=== PATIENT | female | born 1950 | race Caucasian/White ===

== ENCOUNTER 2017-10-16 06:00 | Inpatient (IN) | payer BC, MEDICARE ==
[~2017-10-16] VITALS: Ht 157.5 cm; Wt 72.6 kg
[~2017-10-16 06:00] MED LIST: AMLO10TA2 PO; CALC600T12 PO; CHOL20004 PO; HUMALOG INSULIN SQ; LANTUS INSULIN SQ; LEVO100T10 PO; NIAC1000 PO; PENT400T12 PO; SIMV40TA5 PO
--- NOTE | 2017-10-16 06:35 | NUR ---
Dr. North at bedside for MSE.
[2017-10-16] MEDS ORDERED: CHOL20004 PO (06:44)
[2017-10-16] MEDS ORDERED: AMLO10TA2 PO (06:44)
[2017-10-16] MEDS ORDERED: CALC600T12 PO (06:44)
[2017-10-16] MEDS ORDERED: ACETAMINOPHEN ES 500 MG TABLET PO ONE (06:45)
[2017-10-16] MEDS ORDERED: LANTUS INSULIN SUBCUT (06:46)
[2017-10-16] MEDS ORDERED: ACETAMINOPHEN ES 500 MG TABLET ONE (06:47)
--- NOTE | 2017-10-16 07:23 | NUR ---
REPORT GIVEN TO DANIA GREEN.
[2017-10-16] MEDS ORDERED: MORPHINE SULFATE 2 MG/1 ML DISP.SYRIN IV ONE (07:30)
[2017-10-16] MEDS ORDERED: ONDANSETRON 4 MG/2 ML VIAL IV ONE (07:30)
[2017-10-16] MEDS ORDERED: ONDANSETRON 4 MG/2 ML VIAL ONE (07:37)
[2017-10-16] MEDS ORDERED: MORPHINE SULFATE 2 MG/1 ML DISP.SYRIN ONE (07:38)
[2017-10-16] MEDS ORDERED: PROPOFOL 200 MG/20 ML BOTTLE ONE (07:40)
--- NOTE | 2017-10-16 07:40 | NUR ---
Pt signed consent for closed reduction of Lt ankle by JASON HOOD.
--- NOTE | 2017-10-16 07:45 | NUR ---
Recieved call from DR yadira damian/ [facility](Pt's insurance), notify that no bed available at [facility], and Pt will be admitted to our hospital. Dr North made aware.
--- NOTE | 2017-10-16 07:50 | NUR ---
Time out done by Dr hitchcock and myself, Rt at the bedside.
--- NOTE | 2017-10-16 08:02 | NUR ---
Pt recieved 70 mg of Diprovan, per Md order. 130 mg of Diprovan wasted.
--- NOTE | 2017-10-16 08:03 | NUR ---
Pt is awake and verbally responsive, although drowsy. Able to move all 4 ext. No c/o pain at this time.
[2017-10-16 08:14] LABS: BASOPHILS % (AUTO) 0.3 % (0.0-2.0); EOSINOPHILS # (AUTO) 0.1 K/uL (0.0-0.7); HEMATOCRIT 36.5 % (31.2-41.9); HEMOGLOBIN 11.9 g/dL (10.9-14.3); LYMPHOCYTES % (AUTO) 7.2 % (20.5-51.5); MEAN CORPUSCULAR HEMOGLOBIN 28.4 uug (24.7-32.8); MEAN CORPUSCULAR HGB CONC 33 g/dL (32.3-35.6); MEAN CORPUSCULAR VOLUME 86.8 fL (75.5-95.3); MONOCYTES # (AUTO) 0.4 K/uL (2.0-10.0); MONOCYTES % (AUTO) 2.8 % (0.0-11.0); NEUTROPHILS # (AUTO) 12.3 K/uL (1.8-8.9); NEUTROPHILS % (AUTO) 88.7 % (38.5-71.5); PLATELET COUNT (AUTO) 502 K/uL (179-408); WHITE BLOOD COUNT (AUTO) 13.9 K/uL (3.8-11.8)
--- NOTE | 2017-10-16 08:15 | NUR ---
Pt is awake and able to move all ext. Pt is made aware of admin to hospital and agreed.
[2017-10-16 08:21] LABS: CREATININE 1.2 mg/dL (0.6-1.3); POTASSIUM 4.6 mmol/L (3.5-5.1)
[2017-10-16 08:27] LABS: BILIRUBIN,DIRECT 0.1 mg/dL (0.0-0.2); BILIRUBIN,TOTAL 0.4 mg/dL (0.2-1.0); TOTAL PROTEIN, SERUM 7.1 g/dL (6.4-8.2)
--- NOTE | 2017-10-16 08:41 | NUR ---
Pt is resting in bed w/ both eyes closed, arousable to verbal response. No c/o pain, CMS WNL on all 4 ext.
[2017-10-16] MEDS ORDERED: IV NORMAL SALINE 1000 ML BAG IV ONE (09:00)
[2017-10-16] MEDS ORDERED: PROPOFOL 200 MG/20 ML BOTTLE IV ONE (09:00)
--- NOTE | 2017-10-16 09:00 | NUR ---
Patient is resting comfortably in bed with eyes closed, NAD noted.
--- NOTE | 2017-10-16 09:30 | NUR ---
paged Orth librarian special collections Dr Argueta x4, awaiting call back.
--- NOTE | 2017-10-16 09:40 | NUR ---
Dr sinha called and spoke to JASON HOOD.
--- NOTE | 2017-10-16 10:18 | NUR ---
patient transferred from ER onto medical-surgical floor in stable condition, no s/s of distress. vital signs stable. left ankle wrapped with plaster cast. patient only complains of pain with movement of left-lower extremity and is tolerable without pain medication. accu-check shows 132. bed in locked/low position, side rails up x2, bed alarm on , call light within reach.
[2017-10-16 10:20] VITALS: BP 126/44
[2017-10-16] MEDS ORDERED: IV D5/ 0.9% NACL 1,000 ML IV PRN (10:45)
--- NOTE | 2017-10-16 12:00 | NUR ---
Dr. Argueta is aware of patient's condition and will be the patient's surgeon if patient agrees and signs consent to have surgery done. Dr. Argueta has not seen patient yet. no orders placed for surgery yet.
[2017-10-16] MEDS ORDERED: INSULIN REGULAR, HUMAN 300 UNIT/3 ML VIAL SQ PRN (12:30)
[2017-10-16] MEDS ORDERED: DEXTROSE 50% 50 ML DISP.SYRIN IV PRN (12:30)
[2017-10-16] MEDS: BLOOD SUGAR DIAGNOSTIC 1 EACH STRIP VI SCH ×3 (12:36→20:29)
[2017-10-16 15:30] VITALS: BP 120/48
[2017-10-16 15:30] LABS: *BILIRUBIN,URIN NEGATIVE (NEGATIVE); *BLOOD, URINE NEGATIVE (NEGATIVE); *CLARITY,URINE CLEAR (CLEAR); *COLOR,URINE YELLOW (YELLOW); *KETONES,URINE 1+ (NEGATIVE); *PROTEIN,URINE NEGATIVE (NEGATIVE); *UROBILINOGEN,URINE 0.2 E.U./dl (NORMAL); LEUKOCYTE ESTERASE ,URINE NEGATIVE (NEGATIVE); NITRITE, URINE NEGATIVE (NEGATIVE); UGLUCOSE NEGATIVE (NEGATIVE)
[2017-10-16 15:41] LABS: BACTERIA,URINE NONE SEEN /HPF (NONE SEEN); RBC,URINE 0-3 /HPF (0-3); SQUAMOUS EPITHELIAL CELL,UR FEW /HPF (NONE SEEN); WBC,URINE 0-3 /HPF (0-3)
[2017-10-16] MEDS: ONDANSETRON 4 MG/2 ML VIAL IV PRN (17:44)
[2017-10-16] MEDS: ACETAMINOPHEN 325 MG TABLET PO PRN (17:54)
[2017-10-16 19:00] VITALS: BP 132/52
--- NOTE | 2017-10-16 19:15 | NUR ---
RECEIVED PT AWAKE, ALERT, ORIENTEDX4. PT SHOWS NO SIGNS OF DISTRESS. PT IV INTACT AND PATENT. CALL LIGHT WITHIN REACH, BED ALARM ON AND IN LOW POSITION, SIDE RAILS UPX2. NO ORDER FOR THE PROCEDURE DIAMOND EXCEPT NPO MIDNIGHT. WILL CONTINUE TO MONITOR.
--- NOTE | 2017-10-16 19:25 | NUR ---
RECEIVED PT AWAKE, ALERT, AND ORIENTEDX4. PT SHOWS NO SIGNS OF DISTRESS. IV INTACT AND PATENT.CALL LIGHT WITHIN REACH, BED ALARM ON AND IN LOW POSITION, SIDE RAILS UPX2. WILL CONTINUE TO MONITOR.
--- NOTE | 2017-10-16 20:42 | NUR ---
DR LARRY ORDERED 15 UNITS OF LANTUS BASED ON THE RESULT OF BLOOD SUGAR OF PT OF 130 . PT SAID HER BLOOD SUGAR DRASTICALLY GOES DOWN AT MIDNIGHT. CHARGE NURSE AWARE. WILL CONTINUE TO MONITOR THE PT.
[2017-10-16] MEDS: INSULIN GLARGINE,HUM 300 UNITS/3 ML CARTRIDGE SQ SCH (21:00)
[2017-10-16] MEDS ORDERED: INSULIN GLARGINE,HUM 300 UNITS/3 ML CARTRIDGE SQ ONE (21:00)
[2017-10-17] MEDS ORDERED: IV D5/ 0.9% NACL 1,000 ML IV PRN
--- NOTE | 2017-10-17 03:40 | NUR ---
JOSE ELIAS CHINCHILLA ORDERED THAT THE STATUS OF PT IS DNR BASED ON THE ADVANCE DIRECTIVE THAT WAS FAX TO US ON 10/16/17. 2 RN SIGNED THE STATUS.
[2017-10-17 04:00] VITALS: BP 149/55
[2017-10-17 06:38] LABS: BASOPHILS # (AUTO) 0.1 K/uL (0.0-8.0); BASOPHILS % (AUTO) 0.9 % (0.0-2.0); EOSINOPHILS # (AUTO) 0.4 K/uL (0.0-0.7); EOSINOPHILS % (AUTO) 5.6 % (0.0-7.0); HEMATOCRIT 35.1 % (31.2-41.9); HEMOGLOBIN 11.6 g/dL (10.9-14.3); LYMPHOCYTES # (AUTO) 1.6 K/uL (20.0-40.0); LYMPHOCYTES % (AUTO) 21.6 % (20.5-51.5); MEAN CORPUSCULAR HEMOGLOBIN 28.9 uug (24.7-32.8); MEAN CORPUSCULAR HGB CONC 33 g/dL (32.3-35.6); MEAN CORPUSCULAR VOLUME 87.8 fL (75.5-95.3); MONOCYTES # (AUTO) 0.5 K/uL (2.0-10.0); MONOCYTES % (AUTO) 6.1 % (0.0-11.0); NEUTROPHILS % (AUTO) 65.8 % (38.5-71.5); PLATELET COUNT (AUTO) 475 K/uL (179-408); WHITE BLOOD COUNT (AUTO) 7.5 K/uL (3.8-11.8)
[2017-10-17] MEDS: BLOOD SUGAR DIAGNOSTIC 1 EACH STRIP VI SCH ×6 (06:38→22:05)
[2017-10-17] MEDS: LEVOTHYROXINE SODIUM 100 MCG TABLET PO SCH ×2 (06:39→08:49)
--- NOTE | 2017-10-17 06:44 | NUR ---
PT SLEPT THROUGHOUT THE SHIFT. PT SHOWS NO SIGNS OF DISTRESS. IV INTACT AND PATENT. SYNTHROID NOT ADMINISTERED BECAUSE OF NPO STATUS.PRESCRIBED MEDICATION GIVEN AND PT TOLERATED IT WELL. NO COMPLAINT OF ABDOMINAL PAIN. SAFETY AND COMFORT PROVIDED. WILL ENDORSE TO DAYSHIFT NURSE.
[2017-10-17 06:46] LABS: BILIRUBIN,TOTAL 0.5 mg/dL (0.2-1.0); CREATININE 1.2 mg/dL (0.6-1.3); MAGNESIUM 1.8 mg/dL (1.8-2.4); PHOSPHOROUS 2.9 mg/dL (2.5-4.9); POTASSIUM 4.2 mmol/L (3.5-5.1); TOTAL PROTEIN, SERUM 6.6 g/dL (6.4-8.2)
[2017-10-17 06:53] LABS: THYROID STIMULATING HORMONE 2.067 mIU/mL (0.358-3.740)
--- NOTE | 2017-10-17 07:43 | NUR ---
patient resting comfortably in bed. awaiting Dr. Argueta to speak with patient regarding surgery. POLST signed by patient. consent for surgery still needs to be signed when Dr. Argueta places order. no s/s of distress at this time.
--- NOTE | 2017-10-17 08:30 | NUR ---
blood sugar re-checked: 336 8 units insulin administered per mild sliding scale.
[2017-10-17] MEDS: MORPHINE SULFATE 2 MG/1 ML DISP.SYRIN IV PRN ×3 (08:32→22:00)
[2017-10-17] MEDS: CALCIUM CARBONATE 600 MG TABLET PO SCH ×2 (08:33→17:27)
[2017-10-17] MEDS: CHOLECALCIFEROL 1,000 UNIT TABLET PO SCH (08:33)
[2017-10-17] MEDS: AMLODIPINE 10 MG TABLET PO SCH (08:33)
[2017-10-17] MEDS: PANTOPRAZOLE SODIUM 40 MG VIAL IV SCH (09:00)
[2017-10-17] MEDS ORDERED: Medication Not On Formulary EA (Cholecalciferol (Vitamin D3) (Vitamin D CAPSULE) 2,000 U PO SCH (09:00)
[2017-10-17] MEDS ORDERED: OMEP40CA37 PO (10:37)
[2017-10-17] MEDS ORDERED: CLONIDINE HCL 0.1 MG TABLET PO PRN (10:45)
[2017-10-17] MEDS ORDERED: DEXTROSE 50% 50 ML DISP.SYRIN IV PRN (11:00)
[2017-10-17 12:09] VITALS: BP 117/41
[2017-10-17] MEDS: INSULIN REGULAR, HUMAN 300 UNIT/3 ML VIAL SQ PRN (12:17)
--- NOTE | 2017-10-17 15:25 | NUR ---
DR. VANG SPEAKING WITH PATIENT AT THIS TIME REGARDING SURGERY. DR. VANG PLACED ORDER TO OBTAIN PROCEDURE CONSENT FOR - OPEN REDUCTION INTERNAL FIXATION LEFT ANKLE FRACTURE. WILL FOLLOW-UP.
--- NOTE | 2017-10-17 15:47 | NUR ---
RN requested RD to see pt about Glucerna ONS. Pt reports she does not like Glucerna ONS chocolate or vanilla. Pt reports she has only been able to eat jello. Pt requested to have Ensure Clear. Patient's blood glucose levels elevated.
--- NOTE | 2017-10-17 15:51 | NUR ---
RN requested RD to see patient. Patient reports she does not like Glucerna ONS chocolate or vanilla flavor. Patient reports she has only been able to eat jello. Patient requested to have Ensure Clear. RD advised patient that Ensure Clear has excessive sugar. Patient aware but unable to eat other foods. Labs: 10/17 A1C 7.2H, Glu 251H. RD to follow up. Addendum: 10/17/17 at [address] Amended: Links added.
[2017-10-17 16:16] VITALS: BP 135/52
[2017-10-17] MEDS: ONDANSETRON 4 MG/2 ML VIAL IV PRN ×2 (17:27→23:39)
[2017-10-17] MEDS ORDERED: LISI-603 PO (19:09)
--- NOTE | 2017-10-17 19:20 | NUR ---
RECEIVED PT AWAKE, ALERT, AND ORIENTEDX4. PT SHOWS NO SIGNS OF DISTRESS. IV INTACT AND PATENT. CALL LIGHT WITHIN REACH, BED ALARM ON AND IN LOW POSITION, SIDE RAILS UPX2. WILL CONTINUE TO MONITOR.
[2017-10-17] MEDS: ACETAMINOPHEN 325 MG TABLET PO PRN (19:57)
[2017-10-17 20:37] VITALS: BP 137/63
[2017-10-17] MEDS: INSULIN GLARGINE,HUM 300 UNITS/3 ML CARTRIDGE SQ SCH (22:05)
[2017-10-17] MEDS: INSULIN REGULAR, HUMAN 300 UNITS/3 ML VIAL SQ PRN (22:06)
--- NOTE | 2017-10-17 22:30 | NUR ---
NOTIFY DR. LARRY REGARDING THE BLOOD SUGAR RESULT.AWAITING FOR FURTHER ORDERS. PT HAD 552 AT 2100H THEN CALLED LAB FOR FOR STAT GLUCOSE AND THEY CALLED BACK TO SAY THAT ITS 517. GAVE INSULIN PER PROTOCOL OF 10 UNITS AND LANTUS OF 23 UNITS. PT STABLE AND NO ACUTE DISTRESS. WILL CONTINUE TO MONITOR.
--- NOTE | 2017-10-17 23:20 | NUR ---
DOCTOR LARON ORDERED TO GIVE EXTRA 10 UNITS OF INSULIN AND CHANGED THE IV FLUID. PT STABLE. WILL CONTINUE TO MONITOR.
[2017-10-17] MEDS ORDERED: IV 1/2NS 1000 ML 1,000 ML IV PRN (23:30)
[2017-10-17] MEDS ORDERED: INSULIN REGULAR, HUMAN 300 UNIT/3 ML VIAL SQ ONE (23:30)
[2017-10-18] MEDS ORDERED: IV D5/ 0.9% NACL 1,000 ML IV PRN
[2017-10-18] MEDS: BLOOD SUGAR DIAGNOSTIC 1 EACH STRIP VI SCH ×5 (06:47→17:15)
[2017-10-18 07:00] LABS: BASOPHILS # (AUTO) 0.1 K/uL (0.0-8.0); BASOPHILS % (AUTO) 1.1 % (0.0-2.0); EOSINOPHILS # (AUTO) 0.6 K/uL (0.0-0.7); EOSINOPHILS % (AUTO) 6.6 % (0.0-7.0); HEMATOCRIT 35.1 % (31.2-41.9); HEMOGLOBIN 11.6 g/dL (10.9-14.3); LYMPHOCYTES # (AUTO) 2.1 K/uL (20.0-40.0); LYMPHOCYTES % (AUTO) 24.7 % (20.5-51.5); MEAN CORPUSCULAR HEMOGLOBIN 28.8 uug (24.7-32.8); MEAN CORPUSCULAR HGB CONC 33 g/dL (32.3-35.6); MEAN CORPUSCULAR VOLUME 87.4 fL (75.5-95.3); MONOCYTES # (AUTO) 0.5 K/uL (2.0-10.0); MONOCYTES % (AUTO) 6.5 % (0.0-11.0); NEUTROPHILS # (AUTO) 5.2 K/uL (1.8-8.9); NEUTROPHILS % (AUTO) 61.1 % (38.5-71.5); PLATELET COUNT (AUTO) 476 K/uL (179-408); RED BLOOD CELL COUNT(AUTO) 4.02 MIL/uL (3.63-4.92); WHITE BLOOD COUNT (AUTO) 8.5 K/uL (3.8-11.8)
--- NOTE | 2017-10-18 07:00 | NUR ---
PT STABLE AND NO ACUTE DISTRESS. IV INTACT AND PATENT. PREOP CHECKLIST DONE. PT GOT 44 CRITICAL LAB VALUE FOR GLUCOSE , GAVE DEXTROSE PER PROTOCOL. CHARGE NURSE AWARE THEN AFTER 30 MINUTES RECHECK THE BLOOD SUGAR AND GOT RESULT OF 221. THE PT STABLE AND NO SIGNS OF DIZZINESS AND COMPLAIN OF PAIN. CHARGE NURSE AWARE . ENDORSE TO DAYSHIFT NURSE.
[2017-10-18 07:08] LABS: BILIRUBIN,TOTAL 0.5 mg/dL (0.2-1.0); CREATININE 1.2 mg/dL (0.6-1.3); MAGNESIUM 1.7 mg/dL (1.8-2.4); PHOSPHOROUS 3.8 mg/dL (2.5-4.9); TOTAL PROTEIN, SERUM 6.9 g/dL (6.4-8.2)
[2017-10-18] MEDS: PANTOPRAZOLE SODIUM 40 MG VIAL IV SCH (07:51)
[2017-10-18] MEDS ORDERED: KETOROLAC TROMETHAMINE 30 MG INJ IM ONE (07:58)
[2017-10-18] MEDS ORDERED: LIDOCAINE HCL 1% 20 ML VIAL MC ONE (07:58)
[2017-10-18] MEDS ORDERED: PROPOFOL 200 MG/20 ML BOTTLE IV ONE (07:58)
[2017-10-18] MEDS ORDERED: IV NORMAL SALINE 1000 ML BAG IV ONE (07:58)
[2017-10-18] MEDS ORDERED: CEFAZOLIN 1 G VIAL MC ONE (07:58)
[2017-10-18] MEDS ORDERED: ONDANSETRON 4 MG/2 ML VIAL IV ONE (07:58)
[2017-10-18] MEDS ORDERED: DEXAMETHASONE SOD PHOSPHATE 4 MG INJ IV ONE (07:58)
--- NOTE | 2017-10-18 08:00 | NUR ---
AWAKE ALERT COOPERATE WELL NO SOB OR PAIN LT LEG /ANKLE HAVING SPLINT INPLACE NEUROVASCULAR CHECK WNL NPO FOR SURGERY THIS AM CONTINUE IVF RESTING WITH CALL FLORES IN REACH
[2017-10-18] MEDS ORDERED: SEVOFLURANE 250 ML BOTTLE IH ONE (08:02)
[2017-10-18] MEDS ORDERED: FENTANYL CITRATE 100 MCG/2 ML AMPUL ONE ×2 (08:29→10:32)
--- NOTE | 2017-10-18 08:30 | NUR ---
TO SURGERY VIA BED CONDITION STABLE
[2017-10-18] MEDS ORDERED: POLYMYXIN B SULFATE 500,000 UNITS, BACITRACIN 50,000 UNITS, NORMAL SALINE 20 ML MC ONE ×3 (08:45)
[2017-10-18] MEDS: AMLODIPINE 10 MG TABLET PO SCH ×2 (09:00→14:00)
[2017-10-18] MEDS: CALCIUM CARBONATE 600 MG TABLET PO SCH ×3 (09:00→17:27)
[2017-10-18] MEDS: CHOLECALCIFEROL 1,000 UNIT TABLET PO SCH ×2 (09:00→14:00)
[2017-10-18] MEDS ORDERED: BUPIVACAINE 0.25% 30 ML VIAL ONE (09:16)
[2017-10-18] MEDS ORDERED: CEFAZOLIN 50 ML IV ONE (10:19)
[2017-10-18] MEDS ORDERED: diphenhydrAMINE 25 MG CAP PO PRN (10:30)
[2017-10-18] MEDS ORDERED: ONDANSETRON 4 MG/2 ML VIAL IV PRN (10:30)
[2017-10-18] MEDS ORDERED: MORPHINE SULFATE 4 MG/1 ML DISP.SYRIN IV PRN (10:30)
[2017-10-18] MEDS ORDERED: KETOROLAC TROMETHAMINE 30 MG INJ ONE (10:32)
[2017-10-18 11:00] VITALS: BP 150/62
--- NOTE | 2017-10-18 11:00 | NUR ---
BACK TO ROOM STILL DROWSY VS TAKEN STABLE NO SOB OR PAIN CONTINUE O2 AT 2L O2 SAT WNL CONTINUE IVF ON LT WRIST CAST ON LEFT LEG/ANKLE DRY INTACT KEEP ICE PK INPLACE NEUROVASCULAR CHECK WNL CLOSED OBSERVATION
[2017-10-18 11:50] VITALS: BP 146/56
[2017-10-18] MEDS: MAGNESIUM SULFATE/D5W 100 ML IV SCH ×2 (12:09→13:38)
[2017-10-18] MEDS: INSULIN REGULAR, HUMAN 300 UNIT/3 ML VIAL SQ PRN ×2 (12:10→17:56)
[2017-10-18] MEDS ORDERED: KETOROLAC TROMETHAMINE 30 MG INJ IVP SCH (14:00)
[2017-10-18] MEDS ORDERED: KETOROLAC TROMETHAMINE 15 MG INJ IVP SCH (15:43)
[2017-10-18 16:05] VITALS: BP 143/61
--- NOTE | 2017-10-18 16:31 | NUR ---
ACCU CHECK BS WAS HIGH 524 ,PATIENT STATE DRINK ENSURE AT 1530 PM ,THEN WILL REPEAT LATER
--- NOTE | 2017-10-18 17:20 | NUR ---
REPEAT ACCU CHECK AGAIN IT WAS 518 THEN REPEAT AT 1722PM IT WAS 465 AND LAB WAS CALL TO DRAW BLOOD PER PROTOCAL
[2017-10-18] MEDS: POTASSIUM CHLORIDE 20 MEQ in IV 1/2NS 1000 ML 1,000 ML IV PRN (17:26)
[2017-10-18] MEDS: KETOROLAC TROMETHAMINE 15 MG INJ IVP SCH (17:59)
[2017-10-18] MEDS: CEFAZOLIN 1 G in PREMIXED 1 EACH IV SCH (17:59)
--- NOTE | 2017-10-18 18:00 | NUR ---
LAB CALL BLOOD GLUCOSE WAS 488 AND Dana SANTANA WAS INFORM STATE WILL TAKE A LOOK .
--- NOTE | 2017-10-18 18:15 | NUR ---
MOST OF THE TIME RESTING WELL LEFT FOOT CAST INPLACE WITH ICE PK NEURO-VASCULAR CIRCULATION WNL ,PAIN UNDER CONTROL SAFETY MEASURE PROVIDED CALL LIGHT IN REACH
--- NOTE | 2017-10-18 19:20 | NUR ---
RECEIVED PT AWAKE, ALERT, ORIENTEDX4. PT SHOWS NO SIGNS OF DISTRESS. PT IV INTACT AND PATENT. NEUROVASCULAR CHECK WNL. CALL LIGHT WITHIN REACH. WILL CONTINUE TO MONITOR.
[2017-10-18 20:25] VITALS: BP 150/57
--- NOTE | 2017-10-18 20:44 | NUR ---
ACCUCHECK RESULT WAS 419. NOTIFY CHARGE NURSE. PT STABLE WITH NO ACUTE DISTRESS. BASED ON EMAR PT RECEIVED 15 UNITS OF INSULIN AT 1756H. I GAVE LANTUS 23 UNITS BASED ON EMAR. CHARGE NURSE AWARE OF SITUATION. WILL CONTINUE TO MONITOR THE PT.
[2017-10-18] MEDS: INSULIN GLARGINE,HUM 300 UNITS/3 ML CARTRIDGE SQ SCH (21:00)
[2017-10-19] MEDS: CEFAZOLIN 1 G in PREMIXED 1 EACH IV SCH (01:13)
[2017-10-19] MEDS: KETOROLAC TROMETHAMINE 15 MG INJ IVP SCH ×3 (01:13→17:46)
[2017-10-19 05:27] VITALS: BP 149/86
--- NOTE | 2017-10-19 06:09 | NUR ---
PT SLEPT THROUGHOUT THE SHIFT, PT SHOWS NO SIGNS OF DISTRESS. PRESCRIBED MEDICATION GIVEN AND PT TOLERATED IT WELL. NEUROVASCULAR CHECK WITHIN NORMAL LIMIT. GOT A RESULT OF 315 BLOOD SUGAR. CHARGE NURSE AWARE. CALL LIGHT WITHIN REACH. BED ALARM ON, BED IN LOW POSITION AND SIDE RAILS UPX2. WILL ENDORSE TO DAYSHIFT NURSE.
[2017-10-19 06:18] LABS: CREATININE 1.3 mg/dL (0.6-1.3); POTASSIUM 4.7 mmol/L (3.5-5.1)
[2017-10-19] MEDS: LEVOTHYROXINE SODIUM 100 MCG TABLET PO SCH (06:31)
[2017-10-19] MEDS: BLOOD SUGAR DIAGNOSTIC 1 EACH STRIP VI SCH ×4 (06:31→20:43)
[2017-10-19] MEDS: POTASSIUM CHLORIDE 20 MEQ in IV 1/2NS 1000 ML 1,000 ML IV PRN (06:31)
--- NOTE | 2017-10-19 06:39 | NUR ---
LAB CALLED FOR CRITICAL VALUE OF 304 FOR GLUCOSE. NOTIFY THE CHARGE NURSE. PT STABLE AND NO ACUTE DISTRESS. NEUROVASCULAR CHECK WNL. WILL ENDORSE TO DAYSHIFT NURSE.
--- NOTE | 2017-10-19 08:00 | NUR ---
AWAKE ALERT COOPERATE WELL NO SOB OR PAIN LEFT LEG ANKLE WITH SPLIT CAST AND DSG D/I ,NEURO VASCULAR CHECK WNL KEEP UP WITH PILLOW IVF INFUSION WELL NO HYPO-HYPERGLYCEMIA NOTE RESTING WELL WITH CALL LIGHT IN REACH AND INSTRUCTION TO CALL WHEN NEEDED
[2017-10-19] MEDS: INSULIN REGULAR, HUMAN 300 UNIT/3 ML VIAL SQ PRN ×2 (08:18→12:19)
[2017-10-19] MEDS: CALCIUM CARBONATE 600 MG TABLET PO SCH ×2 (08:19→17:44)
[2017-10-19] MEDS: PANTOPRAZOLE SODIUM 40 MG VIAL IV SCH (08:19)
[2017-10-19] MEDS: CHOLECALCIFEROL 1,000 UNIT TABLET PO SCH (08:19)
[2017-10-19] MEDS: AMLODIPINE 10 MG TABLET PO SCH (08:20)
--- NOTE | 2017-10-19 09:00 | NUR ---
DR VANG WAS CALL TO CLARIFY PHYSICAL THERAPY ORDER AND MESSAGE LEFT
--- NOTE | 2017-10-19 09:30 | NUR ---
DR VANG CALL BACK AND ORDER RECIEVED NWB CARLOS/PT EVAL
--- NOTE | 2017-10-19 10:15 | NUR ---
OOB UP WITH PHYSICAL THERAPY DOING WELL AND UP IN CHAIR AT THIS TIME ,PAIN UNDER CONTROL
[2017-10-19 11:20] VITALS: BP 135/56
--- NOTE | 2017-10-19 12:00 | NUR ---
DR VANG SEEN PATIENT TODAY NO NEW ORDER ,SHELLY GERARD WAS INFORM OF IV SITE LEAKING AND UNABLE TO RESTART IT POSS D/C IVF ORDER
[2017-10-19 15:45] VITALS: BP 136/76
--- NOTE | 2017-10-19 15:45 | NUR ---
PATIENT HAVING EPISODE OF N/V 100ML OF INDIGESTIVE FOOD AND ZOFRAN PO PRN GIVEN ORDER FAMILY AT BEDSIDE AT THIS TIME Addendum: 10/19/17 at 1602 by ROSY PERALES RN CHRISTEN ABOVE [facility]
--- NOTE | 2017-10-19 17:30 | NUR ---
STABLE HEMODYNAMIC STATUS ,PAIN AND GLUCOSE BLOOD SUGAR UNDER CONTROL NO ACUTE DISTRESS SAFETY MEASURE PROVIDED CALL FLORES IN REACH NEURO VASCULAR CIRCULATION WNL
--- NOTE | 2017-10-19 19:28 | NUR ---
Received pt. in lying bed watching TV, alert, oriented and verbally responsive. Pt. not in respi. distress, breathing even and nonlabored. Denies of any pain at this time. Bed on low position, locked and side rails up x2. L lower leg wrapped with bandage, dry, intact and able to wiggle toes. Will continue to monitor the patient.
[2017-10-19 19:38] VITALS: BP 133/51
[2017-10-19] MEDS: INSULIN GLARGINE,HUM 300 UNITS/3 ML CARTRIDGE SQ SCH (20:46)
[2017-10-19] MEDS: INSULIN REGULAR, HUMAN 300 UNITS/3 ML VIAL SQ PRN (20:47)
--- NOTE | 2017-10-19 21:39 | NUR ---
ACCUCHECK: HS-394, per sliding scale Humulin R 10 units to cover and Lantus 23units as routine HS dose given. Will continue to monitor the pt.
--- NOTE | 2017-10-19 23:21 | NUR ---
CORRECTION: Blood sugar rechecked, resulted to 349mg/dl.
--- NOTE | 2017-10-19 23:21 | NUR ---
RECHECK BLOOD SUGAR: still 395, MACHINE SHORTHAND TEACHER Jose aware and said we will wait for AM blood sugar. No new orders. will continue to monitor the pt.
[2017-10-20] MEDS: KETOROLAC TROMETHAMINE 15 MG INJ IVP SCH ×2 (01:57→10:03)
--- NOTE | 2017-10-20 02:05 | NUR ---
After giving the routine Toradol at 0200, pt. rechecked her blood sugar using her own glucometer,and it resulted to 194 mg/dl. Will continue to monitor the pt.
[2017-10-20 03:43] VITALS: BP 166/70
[2017-10-20] MEDS: POTASSIUM CHLORIDE 20 MEQ in IV 1/2NS 1000 ML 1,000 ML IV PRN (06:35)
[2017-10-20] MEDS: PANTOPRAZOLE SODIUM 40 MG TABLET.DR PO SCH (06:36)
[2017-10-20] MEDS: LEVOTHYROXINE SODIUM 100 MCG TABLET PO SCH (06:36)
[2017-10-20] MEDS: BLOOD SUGAR DIAGNOSTIC 1 EACH STRIP VI SCH ×4 (06:36→20:28)
[2017-10-20] MEDS: HYDROCODONE/APAP 10-325 MG TABLET PO PRN ×2 (06:36→21:31)
[2017-10-20] MEDS: INSULIN REGULAR, HUMAN 300 UNIT/3 ML VIAL SQ PRN ×3 (08:26→17:29)
[2017-10-20] MEDS: CHOLECALCIFEROL 1,000 UNIT TABLET PO SCH (08:28)
[2017-10-20] MEDS: AMLODIPINE 10 MG TABLET PO SCH (08:28)
[2017-10-20] MEDS: CALCIUM CARBONATE 600 MG TABLET PO SCH ×2 (08:28→17:28)
[2017-10-20 08:35] VITALS: BP 140/57
[2017-10-20 11:30] VITALS: BP 132/57
[2017-10-20] MEDS ORDERED: MORPHINE SULFATE 4 MG/1 ML DISP.SYRIN IM PRN (13:00)
[2017-10-20] MEDS ORDERED: ONDANSETRON 4 MG/2 ML VIAL IM PRN (13:00)
[2017-10-20] MEDS ORDERED: ONDANSETRON ODT 4 MG TAB.RAPDIS SL PRN (13:00)
[2017-10-20] MEDS ORDERED: KETOROLAC TROMETHAMINE 15 MG INJ IM PRN (13:15)
[2017-10-20 16:09] VITALS: BP 120/70
[2017-10-20] MEDS ORDERED: KETOROLAC TROMETHAMINE 15 MG INJ IM SCH (18:00)
[2017-10-20 19:00] VITALS: BP 136/56
--- NOTE | 2017-10-20 19:06 | NUR ---
PATIENT HAS BEEN COOPERATIVE WITH CARE, ALL NEEDS MET. PATIENT AMBULATED WITH THERAPY AND IS GETTING UP WITH ASSISTANCE TO THE BEDSIDE COMMODE. CURRENTLY PATIENT IS IN BED, NO DISTRESS NOTED, BED IN LOW POSITION, SIDE RAILS UP X2.
--- NOTE | 2017-10-20 20:00 | NUR ---
RECEIVED PATIENT AWAKE IN BED. A/O X4. VERY PLEASANT WHEN APPROACHED. DENIES ANY PAIN OR DISCOMFORT. NO RESP. DISTRESS NOTED. DRESSING NOTED TO LEFT ANKLE, C/D/I. NEUROVASCULAR CHECKS WNL. SENSATION PRESENT. VS WNL. CALL LIGHT IN REACH. ALL NEEDS ATTENDED. WILL CONTINUE TO MONITOR AND ASSESS.
[2017-10-20] MEDS: INSULIN GLARGINE,HUM 300 UNITS/3 ML CARTRIDGE SQ SCH (20:30)
--- NOTE | 2017-10-20 21:40 | NUR ---
PATIENT AWAKE, C/O PAIN 7/10, IN LEFT ANKLE. PATIENT GIVEN NORCO 1 TAB PO PRN FOR PAIN. LLE ELEVATED ON PILLOWS. NEUROVASCULAR CHECKS WNL. WILL CONTINUE TO MONITOR AND ASSESS. CALL LIGHT IN REACH. ALL NEEDS ATTENDED.
[2017-10-21 04:00] VITALS: BP 120/56
[2017-10-21 06:07] LABS: CREATININE 1.2 mg/dL (0.6-1.3)
[2017-10-21 06:09] LABS: BASOPHILS # (AUTO) 0.1 K/uL (0.0-8.0); BASOPHILS % (AUTO) 0.8 % (0.0-2.0); EOSINOPHILS # (AUTO) 1.1 K/uL (0.0-0.7); EOSINOPHILS % (AUTO) 13.2 % (0.0-7.0); HEMATOCRIT 31.5 % (31.2-41.9); HEMOGLOBIN 10.5 g/dL (10.9-14.3); LYMPHOCYTES # (AUTO) 2.2 K/uL (20.0-40.0); LYMPHOCYTES % (AUTO) 25.6 % (20.5-51.5); MEAN CORPUSCULAR HEMOGLOBIN 29.1 uug (24.7-32.8); MEAN CORPUSCULAR HGB CONC 33 g/dL (32.3-35.6); MEAN CORPUSCULAR VOLUME 87.4 fL (75.5-95.3); MONOCYTES # (AUTO) 0.5 K/uL (2.0-10.0); MONOCYTES % (AUTO) 5.6 % (0.0-11.0); NEUTROPHILS # (AUTO) 4.8 K/uL (1.8-8.9); NEUTROPHILS % (AUTO) 54.8 % (38.5-71.5); PLATELET COUNT (AUTO) 488 K/uL (179-408); RED BLOOD CELL COUNT(AUTO) 3.61 MIL/uL (3.63-4.92); WHITE BLOOD COUNT (AUTO) 8.7 K/uL (3.8-11.8)
--- NOTE | 2017-10-21 06:15 | NUR ---
PATIENT ASLEEP IN BED. EASILY AROUSABLE. SLEPT WELL THROUGHOUT THE NIGHT. VS WNL. CALL LIGHT IN REACH. ALL NEEDS ATTENDED, WILL CONTINUE TO MONITOR AND ASSESS.
[2017-10-21] MEDS: LEVOTHYROXINE SODIUM 100 MCG TABLET PO SCH (06:23)
[2017-10-21] MEDS: PANTOPRAZOLE SODIUM 40 MG TABLET.DR PO SCH (06:23)
[2017-10-21] MEDS: BLOOD SUGAR DIAGNOSTIC 1 EACH STRIP VI SCH ×4 (06:34→20:21)
--- NOTE | 2017-10-21 07:30 | NUR ---
RECEIVED PATIENT ON BED, ASLEEP. NO ACUTE DISTRESS NOTED. NO IV ACCESS NOTED DUE TO PT BEING HARD STICK. NO COMPLAINTS OF PAIN/DISCOMFORT AT THIS TIME. VITAL SIGNS STABLE PER MANAGER LOCAL NURSE. ABLE TO USE BEDSIDE COMMODE W/ HELP OF WALKER. BLOOD GLOCOSE THIS AM 86 NO INSULIN COVERAGE NEEDED. COMFORT MEASURES PROVIDED. CALL LIGHT WITHIN REACH. WILL CONTINUE TO MONITOR CLOSELY.
[2017-10-21] MEDS: CHOLECALCIFEROL 1,000 UNIT TABLET PO SCH (08:51)
[2017-10-21] MEDS: CALCIUM CARBONATE 600 MG TABLET PO SCH ×2 (08:51→17:26)
[2017-10-21] MEDS: AMLODIPINE 10 MG TABLET PO SCH (08:53)
[2017-10-21] MEDS: INSULIN REGULAR, HUMAN 300 UNIT/3 ML VIAL SQ PRN ×2 (12:02→17:21)
[2017-10-21 12:11] VITALS: BP 100/60
[2017-10-21 16:05] VITALS: BP 150/61
[2017-10-21] MEDS: HYDROCODONE/APAP 10-325 MG TABLET PO PRN ×2 (18:27→21:50)
--- NOTE | 2017-10-21 18:30 | NUR ---
PATIENT IN BED, NO ACUTE DISTRESS NOTED COMPLAINED OF LEFT ANKLE AND SHOULDER PAIN 4/10, NORCO PRN GIVEN. VITAL SIGNS STABLE. LAST BLOOD GLUCOSE 144, 2 UNITS OF INSULIN GIVEN, WELL TOLERATED. ALL NEEDS ATTENDED AND ANTICIPATED. WILL CONTINUE TO MONITOR CLOSELY.
--- NOTE | 2017-10-21 19:45 | NUR ---
RECEIVED REPORT FROM [facility] THAT PATIENT IS TO BE DISCHARGED AND TRANSFERRED TO [facility]. PATIENT IS AWAKE IN BED. A/OX 4. PATIENT AWARE OF DISCHARGE AND TX. DENIES ANY PAIN OR DISCOMFORT AT THIS TIME. NO RESP. DISTRESS NOTED. NO HEPLOCK NOTED. MD AWARE. VS WNL. CAST AND DRESSING NOTED TO LLE, C/D/I. CALL LIGHT IN REACH. ALL NEEDS ATTENDED. WILL CONTINUE TO MONITOR.
[2017-10-21 20:00] VITALS: BP 112/55
[2017-10-21] MEDS: INSULIN GLARGINE,HUM 300 UNITS/3 ML CARTRIDGE SQ SCH (20:23)
[2017-10-21] MEDS: INSULIN REGULAR, HUMAN 300 UNITS/3 ML VIAL SQ PRN (20:24)
--- NOTE | 2017-10-21 20:40 | NUR ---
CALLED AND REPORT GIVEN TO ANSHUL, PRESS OPERATOR HELPER AT [facility]. FULL REPORT GIVEN IN DETAIL. CALLED OUT TO AMBULANCE TRANSPORT, WILL BE ABLE TO PICK PATIENT IN ONE HOUR. PRODUCTION BORING MACHINE OPERATOR NOTIFIED. ALL NEEDS ATTENDED.
--- NOTE | 2017-10-21 21:51 | NUR ---
PATIENT AWAKE IN BED WAITING FOR AMBULANCE BOX SEALING MACHINE CATCHER. PATIENT IS C/O PAIN 6/10 IN LEFT ANKLE. SHELLY JAMA, AT NURSING STATION AND AWARE FANNY ISNT DUE UNTIL 2229. OKAY TO GIVE DOSE NOW. VS WNL. PATIENTS LLE ELEVATED ON PILLOWS. NEUROVASCULAR CHECKS WNL. SENSATION PRESENT. WILL CONTINUE TO MONITOR.
--- NOTE | 2017-10-21 22:15 | NUR ---
AMBULANCE TRANSPORT AT BEDSIDE TO SUPERVISOR RIDES PATIENT. VS WNL. DETAILED REPORT GIVEN TO TRANSPORT TEAM. ALL NEEDS ATTENDED.
--- NOTE | 2017-10-21 22:20 | NUR ---
PATIENT LEFT FACILITY IN STABLE CONDITION. VSS. ALL NEEDS ATTENDED.
== END 2017-10-21 22:00 | DRG 493 ==
LOC: ER 06:02 → TELE 10:01 → MED 10:45
PROVIDERS: ADMIT Internal Medicine; ATTEND Nurse Practitioner Acute Care
PROC: 0QSKXZZ Reposition Left Fibula, External Approach (ICD-10-PCS; 2017-10-16)
PROC: 0QSHXZZ Reposition Left Tibia, External Approach (ICD-10-PCS; 2017-10-16)
PROC: 0QSK04Z Reposition Left Fibula with Internal Fixation Device, Open Approach (ICD-10-PCS; 2017-10-18)
PROC: 0QSH04Z Reposition Left Tibia with Internal Fixation Device, Open Approach (ICD-10-PCS; principal; 2017-10-18 08:31)
DX: S82.842A Displaced bimalleolar fracture of left lower leg, initial encounter for closed fracture (principal); E44.1 Mild protein-calorie malnutrition; E87.1 Hypo-osmolality and hyponatremia; W01.0XXA Fall on same level from slipping, tripping and stumbling without subsequent striking against object, initial encounter; Y93.89 Activity, other specified; Y92.039 Unspecified place in apartment as the place of occurrence of the external cause; S80.212A Abrasion, left knee, initial encounter; E78.5 Hyperlipidemia, unspecified; E03.9 Hypothyroidism, unspecified; Z79.899 Other long term (current) drug therapy; Z68.29 Body mass index [BMI] 29.0-29.9, adult; E78.1 Pure hyperglyceridemia; E88.09 Other disorders of plasma-protein metabolism, not elsewhere classified; E83.51 Hypocalcemia; E10.65 Type 1 diabetes mellitus with hyperglycemia; Z79.4 Long term (current) use of insulin; I10 Essential (primary) hypertension; E66.9 Obesity, unspecified; Z87.81 Personal history of (healed) traumatic fracture; D72.828 Other elevated white blood cell count
CPT/HCPCS: 36415; 70030-TC; 71045; 73610; 76000; 83735; 84100; 84443; 85025; 85730; 87086; 93005; 97110; 97116; 97165; 97530; 97535; A4663; A9150; C1713; C9113; J0690; J1100; J1815; J1885; J2270; J2405; J3010; J3475; J3480; J3490; J7030; J7042